=== PATIENT | female | born 1980 | race African-American/Black ===

== ENCOUNTER 2017-01-19 01:42 | Emergency (ER) | payer MEDICAID ==
[2017-01-19 01:52] VITALS: BP 130/74
--- NOTE | 2017-01-19 03:22 | ER Document Report ---
ED GI/ - General Chief Complaint: Abdominal Pain Stated Complaint: PAIN FROM INCISION SITE Time Seen by Provider: 01/19/17 03:15 Mode of Arrival: Ambulatory Information source: Patient Notes: 36-year-old female presents to ED for pelvic pain. She states she had a C- section in 2013 and she has some pain since then but the pain she is having now started about 2 weeks ago and comes and goes at times this is very much a cramp or spasm other times is just annoying pain. She states she lives alone with her children but she has a significant other. She has not seen her MD in the year. Smokes half pack a day denies any alcohol or drugs. She had a tubal ligation and the uterine ablation. TRAVEL OUTSIDE OF THE [place] IN LAST 30 DAYS: No - HPI Patient complains to provider of: Pelvic pain Onset: Other - He has had some tenderness and pain since she had a in 2013 but the pain that she is experiencing now has been for 2 weeks comes and goes. Timing/Duration: Intermittent Quality of pain: Cramping, Sharp Severity at maximum: Moderate Severity in ED: Moderate Pain Level: 4 Location: Pelvis - Left Vaginal bleeding (Compared to normal period): None LMP: She has had a tubal ligation and uterine ablation Associated symptoms: Other - Pelvic pain Exacerbated by: Movement, Walking Relieved by: Denies Similar symptoms previously: Yes Recently seen / treated by doctor: No - Related Data Allergies/Adverse Reactions: No Known Allergies Allergy (Verified 01/31/16 11:48) Past Medical History - General Information source: Patient - Social History Smoking Status: Current Every Day Smoker Cigarette use (# per day): Yes - Half pack per day Chew tobacco use (# tins/day): No Smoking Education Provided: Yes - less than 2 minutes Frequency of alcohol use: None Drug Abuse: None Lives with: Alone - Alone with children Family History: DM, Hyperlipidemia, Hypertension. denies: Arthritis, CAD, COPD , CVA, Malignancy, Thyroid Disfunction Patient has suicidal ideation: No Patient has homicidal ideation: No - Past Medical History Cardiac Medical History: Reports: None Pulmonary Medical History: Reports: None EENT Medical History: Reports: None Neurological Medical History: Reports: None Endocrine Medical History: Reports: None Renal/ Medical History: Reports: None Malignancy Medical History: Reports: None GI Medical History: Reports: None Musculoskeltal Medical History: Reports None Skin Medical History: Reports None Psychiatric Medical History: Reports: None Traumatic Medical History: Reports: None Infectious Medical History: Reports: None Past Surgical History: Reports: Hx Section, Hx Gynecologic Surgery - Ablation, Hx Umbilical Hernia - Immunizations Hx Diphtheria, Pertussis, Tetanus Vaccination: Yes Review of Systems - Review of Systems Constitutional: No symptoms reported EENT: No symptoms reported Cardiovascular: No symptoms reported Respiratory: No symptoms reported Gastrointestinal: No symptoms reported Genitourinary: No symptoms reported Female Genitourinary: Other - Left pelvic pain Musculoskeletal: No symptoms reported Skin: No symptoms reported Hematologic/Lymphatic: No symptoms reported Neurological/Psychological: No symptoms reported -: Yes All other systems reviewed and negative Physical Exam - Vital signs Vitals: Temp Pulse Resp BP Pulse Ox 97.9 F 69 18 130/74 H 99 01/19/17 01:50 01/19/17 01:50 01/19/17 01:50 01/19/17 01:50 01/19/17 01:50 Interpretation: Normal - General General appearance: Appears well, Alert - HEENT Head: Normocephalic, Atraumatic Eyes: Normal Pupils: PERRL - Respiratory Respiratory status: No respiratory distress Chest status: Nontender Breath sounds: Normal Chest palpation: Normal - Cardiovascular Rhythm: Regular Heart sounds: Normal auscultation Murmur: No - Abdominal Inspection: Normal Distension: No distension Bowel sounds: Normal Tenderness: Tender - left pelvic Organomegaly: No organomegaly - Genitourinary External exam: Normal Speculum exam: Normal Vaginal bleeding: None Bimanuel exam: Normal - Back Back: Normal, Nontender - Extremities General upper extremity: Normal inspection, Nontender, Normal color, Normal ROM , Normal temperature General lower extremity: Normal inspection, Nontender, Normal color, Normal ROM , Normal temperature, Normal weight bearing. No: Milvia's sign - Neurological Neuro grossly intact: Yes Cognition: Normal Orientation: AAOx4 Peng Coma Scale Eye Opening: Spontaneous [place] Coma Scale Verbal: Oriented [place] Coma Scale Motor: Obeys Commands [place] Coma Scale Total: 15 Speech: Normal Motor strength normal: LUE, RUE, LLE, RLE Sensory: Normal - Psychological Associated symptoms: Normal affect, Normal mood - Skin Skin Temperature: Warm Skin Moisture: Dry Skin Color: Normal Course - Re-evaluation Re-evalutation: 01/19/17 07:11 She refused to let me treat her for GC and chlamydia and she left before the results came back. After she had left the chlamydia came back positive. Left message with charge nurse to call patient and call in a prescription for azithromycin 1 g 1 p.o. - Vital Signs Vital signs: Temp Pulse Resp BP Pulse Ox 97.9 F 76 20 130/74 H 99 01/19/17 01:50 01/19/17 06:11 01/19/17 06:11 01/19/17 01:50 01/19/17 01:50 - Laboratory Laboratory results interpreted by me: 01/19/17 01/19/17 04:05 04:05 Urine Nitrite POSITIVE H Ur Leukocyte Esterase TRACE H Chlamydia DNA (PCR) DETECTED H Discharge - Discharge Clinical Impression: UTI (urinary tract infection) Qualifiers: Urinary tract infection type: site unspecified Hematuria presence: without hematuria Qualified Code(s): N39.0 - Urinary tract infection, site not specified Abdominal pain Qualifiers: Abdominal location: lower abdomen, unspecified Qualified Code(s): R10.30 - Lower abdominal pain, unspecified Condition: Stable Disposition: HOME, SELF-CARE Instructions: Family Physicians / Practices Additional Instructions: ABDOMINAL PAIN: There are many causes of abdominal pain. Pain can mean a serious problem requiring surgery (such as appendicitis). It can also be an innocent problem that goes away on its own (such as a viral infection). Often, time must pass to determine the cause of pain. The physician does not feel that hospitalization is necessary, at present. Things may change within the next 24 hours. Call the doctor or come back for re- examination if any problems occur, such as: (1) Pain that becomes more severe, steady, or becomes concentrated in one specific area. Also, pain that is more severe with movement or coughing. (2) Vomiting that persists or becomes more frequent. (3) Blood in the vomitus, urine, or bowel movements. Blood in the stool may have a tarry or black appearance. (4) Shaking chills or fever greater than 100 degrees F. (5) The abdomen becomes more distended or swollen. (6) Bowel movements cease. (7) Failure to improve as expected. URINARY TRACT INFECTION: Your evaluation indicates that you have a urinary tract infection. This is due to germs growing in the bladder. This is a common problem. This infection usually responds quickly to antibiotics. Your antibiotic should be taken exactly as prescribed. Drink plenty of fluids -- three to four quarts a day. Occasionally, a bladder anesthetic will be prescribed to help stop the feeling of urgency until the antibiotic has a chance to clear the infection. This may cause your urine to be dark orange. Certain urine infections require a culture. If the doctor obtained a culture, the results will be back in two days. You should call to see if a change in treatment is needed. A repeat urinalysis after you finish treatment is often recommended. The physician will let you know if further testing is required. Call the doctor if you develop fever, chills, flank pain, inability to urinate, or blood in the urine. ANTIBIOTIC THERAPY: You have been given an antibiotic prescription. It's important that you take all the medication, unless instructed otherwise by your physician. Failure to complete the entire course can result in relapse of your condition. Common side effects of antibiotics include nausea, intestinal cramping, or diarrhea. Women may develop vaginal yeast infections, and babies can get yeast (thrush) in the mouth following the use of antibiotics. Contact your physician if you develop significant side effects from this medication. Allergy to this antibiotic can result in hives, wheezing, faintness, or itching. If symptoms of allergy occur, stop the medication and call the doctor. NITROFURANTOIN (MACRODANTIN, MACROBID): You have received a prescription for nitrofurantoin (Macrodantin). This antibiotic is used for urinary tract infections. Women who are or nursing should notify the physician before taking this medicine. If you have ever had a problem caused by this medication in the past, be sure the physician is aware of it. Common side effects of this medicine include nausea, vomiting, or decreased appetite. Notify your physician if these side effects become severe. Immediately stop this medicine and call the physician if you develop cough , shortness of breath, chest pain, weakness, jaundice (yellow color of the skin and whites of the eyes), or a skin rash. USE OF HTOR-HKM-PTUHJEA IBUPROFEN: Ibuprofen (Advil, Nuprin, Medipren, Motrin IB) is a medication for fever and pain control. In addition, it has anti- inflammatory effects which may be beneficial, especially in the treatment of injuries. It's best to take ibuprofen with food. Persons with ulcer disease or allergy to aspirin should notify their physician of this before taking ibuprofen. Ibuprofen can be given every four to six hours, for a total of four doses daily. Age Pain or fever dose Antiinflammatory dose 6-8 yr 200 mg (1 tab) 200 mg (1 tab) 9-11 yr 200 mg (1 tab) 200-400 mg (1-2 tab) 11-14 yr 200-400 mg (1-2 tab) 400 mg (2 tab) 15-adult 400 mg (2 tab) 600 mg (3 tab) Acetaminophen Acetaminophen may be taken for pain relief or fever control. It's much safer than aspirin, offering a wider range of "safe" dosages. It is safe during . Some brand names are Tylenol, Panadol, Datril, Anacin 3, Tempra, and Liquiprin. Acetaminophen can be repeated every four hours. The following are maximum recommended dosages: WEIGHT Dose Drops Elixir Chewable( 80mg) (LBS.) drprs=droppers tsp=teaspoon 6 40 mg .4 ml (1/2) 6-11 80 mg .8 ml (full) 1/2 tsp 1 tab 12-16 120 mg 1 1/2 drprs 3/4 tsp 1 1/2 tabs 17-23 160 mg 2 drprs 1 tsp 2 tabs 24-30 240 mg 3 drprs 1 1/2 tsp 3 tabs 30-35 320 mg 2 tsp 4 tabs 36-41 360 mg 2 1/4 tsp 4 1 /2 tabs 42-47 400 mg 2 1/2 tsp 5 tabs 48-53 480 mg 3 tsp 6 tabs 54-59 520 mg 3 1/4 tsp 6 1 /2 tabs 60-64 560 mg 3 1/2 tsp 7 tabs 65-70 600 mg 3 3/4 tsp 7 1 /2 tabs 71-76 640 mg 4 tsp 8 tabs 77-82 720 mg 4 1/2 tsp 9 tabs 83-88 800 mg 5 tsp 10 tabs >89 pounds or adults 650 mg to 900 mg Acetaminophen can be repeated every four hours. Maximum daily dose not to exceed 4000 mg. These maximum recommended dosages are slightly higher than the dosages written on the product container, but these dosages are very safe and well below the toxic dosage for acetaminophen. FOLLOW-UP CARE: If you have been referred to a physician for follow-up care, call the physician s office for an appointment as you were instructed or within the next two days. If you experience worsening or a significant change in your symptoms, notify the physician immediately or return to the Emergency Department at any time for re-evaluation. Prescriptions: Nitrofurantoin/Nitrofuran Mac [Macrobid 100 mg Capsule] 1 tab PO BID #20 capsule Forms: Smoking Cessation Education, Elevated Blood Pressure
[2017-01-19 04:59] LABS: APPEARANCE,URINE SLIGHTLY-CLOUDY; BILIRUBIN,URINE NEGATIVE (NEGATIVE); GLUCOSE, URINE NEGATIVE (NEGATIVE); KETONES,URINE NEGATIVE (NEGATIVE); LEUKOCYTE ESTERASE,URINE TRACE (NEGATIVE); NITRITE,URINE POSITIVE (NEGATIVE); PROTEIN,URINE NEGATIVE (NEGATIVE); URINE SPECIFIC GRAVITY 1.018; UROBILINOGEN,URINE NEGATIVE mg/dL (<2.0)
[2017-01-19 06:25] LABS: CHLAM PCR DETECTED (NOT DETECT)
== END 2017-01-19 06:11 | disposition home or self-care (01) ==
LOC: ER 01:42
DX: N39.0 Urinary tract infection, site not specified (principal); A74.9 Chlamydial infection, unspecified; R10.2 Pelvic and perineal pain; F17.210 Nicotine dependence, cigarettes, uncomplicated; Z71.6 Tobacco abuse counseling; Z98.890 Other specified postprocedural states; Z98.51 Tubal ligation status
CPT/HCPCS: 81001; 81025; 87086; 87088; 87186; 87210; 87491; 87591; 99284

== ENCOUNTER 2017-03-03 16:58 | Emergency (ER) | payer MEDICAID ==
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
[2017-03-03] MEDS ORDERED: HYDROCODONE/ACETAMINOPHEN 5-325 MG TABLET PO ONE (19:04)
[2017-03-03] MEDS ORDERED: CEPHALEXIN 500 MG CAPSULE PO ONE (19:04)
[2017-03-03] MEDS ORDERED: DIPH/PERTUSS(ACELL)/TETANUS VAC/PF 0.5 ML SYR (>=10YO) IM ONE (19:04)
--- NOTE | 2017-03-03 19:28 | RADIOLOGY REPORT (SQ) ---
EXAM DESCRIPTION: CT FACIAL AREA WITHOUT COMPLETED DATE/TIME: 03/03/2017 7:11 pm REASON FOR STUDY: facial trauma COMPARISON: None. TECHNIQUE: Noncontrasted images through the facial bones and orbits windowed for bone and soft tissu e. Additional coronal and sagittal reconstructed images reviewed. All images stored on PACS. All CT scanners at this facility use dose modulation, iterative reconstruction, and/or weight based d osing when appropriate to reduce radiation dose to as low as reasonably achievable (ALARA). [facility]: Dose Right [facility]: CareDose [facility]: Dose Right [facility]: Teradose 4D [facility]: [employer] RADIATION DOSE: Up-to-date CT equipment and radiation dose reduction techniques were employed. CTDIv ol: 30.4 mGy. DLP: 547 mGy-cm. mGy. LIMITATIONS: None. FINDINGS: FACIAL BONES: There is a fracture involving the medial wall of the left orbit. No other e vidence for fracture is seen. ORBITS: There is herniation of retro-orbital contents into the left ethmoid sinuses and there is air in the retro-orbital soft tissues on the left. PARANASAL SINUSES: There is increased density in the left ethmoid sinuses adjacent to the medial wall of the left orbit related to posttraumatic changes. No nasal polyps. Maxillary sinus outlets are pa tent. SOFT TISSUES: There is periorbital soft tissue swelling on the left. There is increased density in t he periorbital soft tissue swelling on the left presumably representing a hematoma or other posttraum atic changes. INFERIOR BRAIN: Limited view. No acute findings. OTHER: No other significant finding. IMPRESSION: There is a fracture involving the medial wall of the left orbit with apparent herniation of retro-orbital contents into the left ethmoid sinuses and there is air in the retro-orbital soft t issues on the left. There is superficial soft tissue swelling in the periorbital region on the left with associated increased density presumably representing a hematoma or other posttraumatic changes. Other findings as noted above TECHNICAL DOCUMENTATION: JOB ID: [id number] Quality ID # [id number]: Final reports with documentation of one or more dose reduction techniques (e.g., Au tomated exposure control, adjustment of the mA and/or kV according to patient size, use of iterative reconstruction technique) 2010 [employer]- All Rights Reserved
[2017-03-03] MEDS ORDERED: AMOXICILLIN TR/POT CLAVULANATE 500-125 MG TAB PO ONE (19:44)
[2017-03-03 20:04] VITALS: BP 124/72
== END 2017-03-03 20:15 | disposition home or self-care (01) ==
LOC: ER 16:58
DX: S02.82XA Fracture of other specified skull and facial bones, left side, initial encounter for closed fracture (principal); S00.212A Abrasion of left eyelid and periocular area, initial encounter; S00.12XA Contusion of left eyelid and periocular area, initial encounter; F17.200 Nicotine dependence, unspecified, uncomplicated; Y08.89XA Assault by other specified means, initial encounter
CPT/HCPCS: 99284; 90471; 70486; 90715; J3490

== ENCOUNTER 2017-03-06 02:37 | Emergency (ER) | payer MEDICAID ==
[2017-03-06 02:51] VITALS: BP 140/89
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
== END 2017-03-06 03:31 | disposition home or self-care (01) ==
LOC: ER 02:37
DX: R51 Headache (principal); F17.200 Nicotine dependence, unspecified, uncomplicated; Z87.81 Personal history of (healed) traumatic fracture
CPT/HCPCS: 99282

== ENCOUNTER 2017-03-09 14:04 | Emergency (ER) | payer MEDICAID ==
[2017-03-09 14:11] VITALS: BP 133/83
--- NOTE | 2017-03-09 15:02 | ER Document Report ---
HPI - HPI Patient complains to provider of: eye pain Onset: Last week Onset/Duration: Waxing and waning Quality of pain: Sharp, Throbbing Severity: Moderate Pain Level: 4 Associated Symptoms: Other - Left facial pain with periorbital ecchymosis to the left eye. Patient was seen last week for an orbital fracture Exacerbated by: Denies Relieved by: Denies Similar symptoms previously: Yes Recently seen / treated by doctor: Yes - ROS ROS below otherwise negative: Yes - CONSTITUTIONAL Constitutional: DENIES: Fever, Chills - EENT EENT: REPORTS: Eye problems - Fractured orbital bone. DENIES: Sore Throat, Ear Pain, Nasal Drainage-Clear, Nasal Drainage-Purulent, Congestion - NEURO Neurology: REPORTS: Headache. DENIES: Weakness, Vision blurred, Dizzinesss / Vertigo - CARDIOVASCULAR Cardiovascular: DENIES: Chest pain - RESPIRATORY Respiratory: DENIES: Trouble Breathing, Coughing - GASTROINTESTINAL Gastrointestinal: DENIES: Abdominal Pain, Nausea, Patient vomiting, Diarrhea, Constipation, Black / Bloody Stools - URINARY Urinary: DENIES: Dysuria, Urgency, Frequency - REPRODUCTIVE Reproductive: DENIES: :, Postmenopausal, Abnormal bleeding / discharge - MUSCULOSKELETAL Musculoskeletal: DENIES: Extremity pain, Back Pain, Neck Pain, Swelling - DERM Skin Color: Ecchymosis - Periorbital left eye Skin Problems: None Past Medical History - General Information source: Patient - Social History Smoking Status: Current Every Day Smoker Cigarette use (# per day): Yes - Pack per day Chew tobacco use (# tins/day): No Smoking Education Provided: Yes - 2 minutes Frequency of alcohol use: None Drug Abuse: None Family History: DM, Hyperlipidemia, Hypertension Patient has suicidal ideation: No Patient has homicidal ideation: No - Past Medical History Cardiac Medical History: Reports: None Pulmonary Medical History: Reports: None Neurological Medical History: Reports: None Endocrine Medical History: Reports: None Renal/ Medical History: Reports: None Malignancy Medical History: Reports: None GI Medical History: Reports: None Musculoskeltal Medical History: Reports Other - orbital pain and fracture Skin Medical History: Reports None Psychiatric Medical History: Reports: None Traumatic Medical History: Reports: Hx Fractures - orbital pain Infectious Medical History: Reports: None Past Surgical History: Reports: Hx Section, Hx Gynecologic Surgery - Ablation, Hx Tubal Ligation, Hx Umbilical Hernia - Immunizations Immunizations up to date: Yes Hx Diphtheria, Pertussis, Tetanus Vaccination: Yes Vertical Provider Document - CONSTITUTIONAL Agree With Documented VS: Yes Exam Limitations: No Limitations - INFECTION CONTROL TRAVEL OUTSIDE OF THE [place] IN LAST 30 DAYS: No - HEENT HEENT: Normal ENT Exam. negative: Atraumatic - Periorbital ecchymosis with a fracture last week to the orbital bone, Normocephalic - NECK Neck: Normal Inspection - RESPIRATORY Respiratory: Breath Sounds Normal, No Respiratory Distress O2 Sat by Pulse Oximetry: 98 - CARDIOVASCULAR Cardiovascular: Regular Rate, Regular Rhythm - MUSCULOSKELETAL/EXTREMETIES Musculoskeletal/Extremeties: MAEW, FROM, Non-Tender, Eccymosis - Periorbital ecchymosis due to a orbital fracture - NEURO Level of Consciousness: Awake, Alert, Appropriate Motor/Sensory: No Motor Deficit, No Sensory Deficit Course - Re-evaluation Re-evalutation: 03/09/17 15:36 Patient states she was out of her Percocet and she is still having severe pain in her face. Patient states she went to the eye doctor who is post to do surgery next week but they did not give her any pain medicine. She was treated last week with hydrocodone which she states did not help her pain at all and then they gave her Percocet. I gave her a prescription for 6 Percocet and told her that would be the last narcotic she would get from the emergency room for this orbital pain she would need to follow-up with cloth feeder for any further pain. - Vital Signs Vital signs: Temp Pulse Resp BP Pulse Ox 99.2 F 87 16 133/83 H 98 03/09/17 14:09 03/09/17 14:09 03/09/17 14:09 03/09/17 14:09 03/09/17 14:09 Discharge - Discharge Clinical Impression: Facial pain, acute Condition: Stable Disposition: HOME, SELF-CARE Instructions: Family Physicians / Practices Additional Instructions: You were seen today for continued pain in your eyes and face after you had a fracture facial bone last week. States she was given hydrocodone that did not help you with your pain and then you were given a prescription for oxycodone. She states she went to the eye doctor and he did not give you any further pain medicine. You also states to have a appointment to have eye surgery next week. I will give you a very small prescription for 6 Percocet these need to last you until you can follow-up with your eye doctor as you will not be getting any more medication for the emergency room for your pain. Ice Packs Apply ice packs frequently against the painful area. Many different schedules are recommended, such as "20 minutes on, 20 minutes off" or "one hour ice, two hours rest." If you need to work, you may need to go longer between ice treatments. You should plan to have the area ice packed AT LEAST one fourth of the time. The ice should be applied over the wrap, tape, or splint, or over a layer of cloth -- not directly against the skin. Some ice bags have a built-in cloth and can be put directly on the skin. Oral Narcotic Medication You have been given a prescription for pain control. This medication is a narcotic. It's best taken with food, as nausea can result if taken on an empty stomach. Don't operate machinery or drive within six hours of taking this medication. Do not combine this medicine with alcohol, or with any medication which can cause sedation (such as cold tablets or sleeping pills) unless you get permission from the physician. Narcotics tend to cause constipation. If possible, drink plenty of fluids and eat a diet high in fiber and fruits. FOLLOW-UP CARE: If you have been referred to a physician for follow-up care, call the physician s office for an appointment as you were instructed or within the next two days. If you experience worsening or a significant change in your symptoms, notify the physician immediately or return to the Emergency Department at any time for re-evaluation. Prescriptions: Oxycodone HCl/Acetaminophen [Percocet 5-325 mg Tablet] 1 tab PO Q8HP PRN #6 tablet PRN Reason: Forms: Elevated Blood Pressure
== END 2017-03-09 15:38 | disposition home or self-care (01) ==
LOC: ER 14:04
DX: R51 Headache (principal); H57.12 Ocular pain, left eye; S00.12XD Contusion of left eyelid and periocular area, subsequent encounter; X58.XXXD Exposure to other specified factors, subsequent encounter; F17.210 Nicotine dependence, cigarettes, uncomplicated
CPT/HCPCS: 99283

== ENCOUNTER → 2017-07-18 | Outpatient (CLI) | payer MEDICAID ==
--- NOTE | 2017-07-18 10:08 | RADIOLOGY REPORT (SQ) ---
EXAM DESCRIPTION: ANKLE BILATERAL 3 VIEWS MIN COMPLETED DATE/TIME: 07/18/2017 9:53 am REASON FOR STUDY: ACUTE BILATERAL ANKLE PAIN COMPARISON: None. NUMBER OF VIEWS: Three views. TECHNIQUE: AP, lateral, and oblique without weight bearing radiographic images acquired of the right and left ankle. LIMITATIONS: None. FINDINGS: MINERALIZATION: Normal. BONES: No acute fracture or dislocation. No worrisome bone lesions. No significant osteophytes. JOINTS: No effusions. SOFT TISSUES: No soft tissue swelling. No foreign body. OTHER: No other significant finding. IMPRESSION: NEGATIVE STUDY OF THE RIGHT AND LEFT ANKLES. NO EXPLANATION FOR PAIN. TECHNICAL DOCUMENTATION: JOB ID: [id number] [employer]- All Rights Reserved
== END ==
LOC: RAD 09:29
PROVIDERS: ATTEND Nurse Practitioner Family
DX: M25.571 Pain in right ankle and joints of right foot (principal)

== ENCOUNTER 2018-08-20 02:39 | Emergency (ER) | payer MEDICAID ==
[2018-08-20 03:46] LABS: ABSOLUTE EOSINOPHILS # (AUTO) 0.1 10^3/uL (0.0-0.6); ABSOLUTE LYMPHOCYTES (AUTO) 2.7 10^3/uL (0.5-4.7); ABSOLUTE MONOCYTES (AUTO) 0.4 10^3/uL (0.1-1.4); ABSOLUTE NEUT (AUTO) 2.6 10^3/uL (1.7-8.2); BASOPHILS % (AUTO) 0.4 % (0-2); HEMATOCRIT 34.9 % (36.0-47.0); HEMOGLOBIN 11.9 g/dL (12.0-15.5); LYMPHOCYTES % (AUTO) 46.6 % (13-45); MEAN CORPUSCULAR HEMOGLOBIN 31.1 pg (27.0-33.4); MEAN CORPUSCULAR HGB CONC 34.1 g/dL (32.0-36.0); MEAN CORPUSCULAR VOLUME 91 fl (80-97); MONOCYTES % (AUTO) 7.1 % (3-13); PLATELET COUNT 222 10^3/uL (150-450); RED BLOOD COUNT 3.82 10^6/uL (3.72-5.28); RED CELL DISTRIBUTION WIDTH 13.2 % (11.5-14.0); SEGMENTED NEUTROPHILS % (AUTO) 44.9 % (42-78); TOTAL CELLS COUNTED % (AUTO) 100 %; WHITE BLOOD COUNT 5.7 10^3/uL (4.0-10.5)
[2018-08-20 04:06] LABS: ALANINE AMINOTRANSFERASE 38 U/L (9-52); ALBUMIN 3.9 g/dL (3.5-5.0); ALKALINE PHOSPHATASE 35 U/L (38-126); ANION GAP 6 (5-19); ASPARTATE AMINO TRANSFERASE 26 U/L (14-36); BILIRUBIN,DIRECT 0.2 mg/dL (0.0-0.4); BILIRUBIN,TOTAL 0.2 mg/dL (0.2-1.3); BLOOD UREA NITROGEN 11 mg/dL (7-20); CALCIUM 9.2 mg/dL (8.4-10.2); CARBON DIOXIDE 29 mmol/L (22-30); CHLORIDE 106 mmol/L (98-107); CREATINE KINASE 137 U/L (30-135); GLUCOSE 95 mg/dL (75-110); POTASSIUM 4.1 mmol/L (3.6-5.0); SODIUM 141.1 mmol/L (137-145); TOTAL PROTEIN 6.1 g/dL (6.3-8.2)
--- NOTE | 2018-08-20 04:09 | RADIOLOGY REPORT (SQ) ---
EXAM DESCRIPTION: XR CHEST 1 VIEW COMPLETED DATE/TME: 08/20/2018 03:38 CLINICAL HISTORY: 37 years, Female, sob Comparison: January 31, 2016 FINDINGS: No focal lung consolidation. No pleural effusion. No pneumothorax. Cardiac and mediastinal silhouette is unremarkable. No acute osseous abnormality. Soft tissues are unremarkable. IMPRESSION: No acute findings. No focal lung consolidation.
[2018-08-20 04:19] LABS: TROPONIN I < 0.012 ng/mL
--- NOTE | 2018-08-20 04:56 | ER Document Report ---
ED General - General Chief Complaint: Chest Pain Stated Complaint: CHEST PAIN Time Seen by Provider: 08/20/18 03:19 Primary Care Provider: KHADRA CORRAL MD [Primary Care Provider] - Follow up in 3-5 days TRAVEL OUTSIDE OF THE [place] IN LAST 30 DAYS: No - HPI Patient complains to provider of: Right-sided chest pain Notes: Patient coming in for evaluation of a right-sided chest pain. Patient states that ongoing since Friday. Patient states she donated plasma just prior to chest pain starting. Patient denies any fever chills nausea vomiting diarrhea denies any trauma. Patient states chest hurts when she palpates the area moves. Patient otherwise resting comfortably upon my evaluation. - Related Data Allergies/Adverse Reactions: No Known Allergies Allergy (Verified 01/31/16 11:48) Past Medical History - Social History Smoking Status: Unknown if Ever Smoked Family History: DM, Hyperlipidemia, Hypertension Renal/ Medical History: Denies: Hx Peritoneal Dialysis Traumatic Medical History: Reports: Hx Fractures - orbital pain Past Surgical History: Reports: Hx Section, Hx Gynecologic Surgery - Ablation, Hx Tubal Ligation, Hx Umbilical Hernia - Immunizations Immunizations up to date: Yes Hx Diphtheria, Pertussis, Tetanus Vaccination: Yes Review of Systems - Review of Systems Constitutional: No symptoms reported EENT: No symptoms reported Cardiovascular: Chest pain Respiratory: No symptoms reported Gastrointestinal: No symptoms reported Genitourinary: No symptoms reported Female Genitourinary: No symptoms reported Musculoskeletal: No symptoms reported Skin: No symptoms reported Hematologic/Lymphatic: No symptoms reported Neurological/Psychological: No symptoms reported -: Yes All other systems reviewed and negative Physical Exam - Vital signs Vitals: Temp Pulse Resp BP Pulse Ox 98.8 F 63 18 129/73 H 99 08/20/18 03:00 08/20/18 03:00 08/20/18 03:00 08/20/18 03:00 08/20/18 03:00 Interpretation: Normal - General General appearance: Appears well, Alert - HEENT Head: Normocephalic, Atraumatic Eyes: Normal Pupils: PERRL - Respiratory Respiratory status: No respiratory distress Chest status: Tender Breath sounds: Normal Chest palpation: Normal - Cardiovascular Rhythm: Regular Heart sounds: Normal auscultation Murmur: No - Abdominal Inspection: Normal Distension: No distension Bowel sounds: Normal Tenderness: Nontender Organomegaly: No organomegaly - Back Back: Normal, Nontender - Extremities General upper extremity: Normal inspection, Nontender, Normal color, Normal ROM, Normal temperature General lower extremity: Normal inspection, Nontender, Normal color, Normal ROM, Normal temperature, Normal weight bearing. No: Milvia's sign - Neurological Neuro grossly intact: Yes Cognition: Normal Orientation: AAOx4 Kinsley Coma Scale Eye Opening: Spontaneous Kinsley Coma Scale Verbal: Oriented Kinsley Coma Scale Motor: Obeys Commands Kinsley Coma Scale Total: 15 Speech: Normal Motor strength normal: LUE, RUE, LLE, RLE Sensory: Normal - Psychological Associated symptoms: Normal affect, Normal mood - Skin Skin Temperature: Warm Skin Moisture: Dry Skin Color: Normal Course - Re-evaluation Re-evalutation: 08/20/18 05:36 The patient has atypical chest pain as the patient's chest pain is not suggestive of pulmonary embolus, cardiac ischemia, aortic dissection, or other serious etiology. Given the extremely low risk of these diagnoses further testing and evaluation for these possibilities does not appear to be indicated at this time. The patient has been instructed to return if the symptoms worsen or change in any way. - Vital Signs Vital signs: Temp Pulse Resp BP Pulse Ox 98.2 F 63 21 H 134/73 H 99 08/20/18 05:01 08/20/18 03:00 08/20/18 05:01 08/20/18 05:01 08/20/18 05:01 - Laboratory Result Diagrams: 08/20/18 03:38 08/20/18 03:38 Laboratory results interpreted by me: 08/20/18 08/20/18 03:38 03:38 Hgb 11.9 L Hct 34.9 L Lymphocytes % 46.6 H Alkaline Phosphatase 35 L Creatine Kinase 137 H Total Protein 6.1 L Discharge - Discharge Clinical Impression: Chest wall pain Condition: Good Disposition: HOME, SELF-CARE Instructions: Anti-Inflammatory Medication ([facility]), Chest Wall Pain ([facility]), Chest Pain of Unclear Cause ([facility]) Additional Instructions: Your evaluation is consistent with chest wall pain would recommend that you follow-up with your primary care physician. I recommend taking Tylenol and Motrin for your pain control. Please make sure that you are drinking plenty of fluids containing electrolytes such as Gatorade Pedialyte or Powerade especially if you continue to plan on donating plasma. Return to the ER if your symptoms worsen or change. Prescriptions: Ibuprofen [Motrin 600 mg Tablet] 600 mg PO Q8HP PRN #21 tablet PRN Reason: Referrals: KHADRA CORRAL MD [Primary Care Provider] - Follow up in 3-5 days
[2018-08-20 05:04] VITALS: BP 134/73
--- NOTE | 2018-08-20 22:21 | EKG REPORT ---
SEVERITY:- NORMAL ECG - SINUS RHYTHM : Confirmed by: Katiana Lam 20-Aug-2018 22:20:00
== END 2018-08-20 05:14 | disposition home or self-care (01) ==
LOC: ER 02:39
DX: R07.89 Other chest pain (principal); R07.9 Chest pain, unspecified; Z98.51 Tubal ligation status
CPT/HCPCS: 36415; 71045; 80053; 82550; 82553; 84484; 85025; 93005; 93010; 99285

== ENCOUNTER 2018-08-31 08:24 | Day surgery (SDC) | payer MEDICAID ==
[~2018-08-31 08:24] MED LIST: PROPOFOL INJ 200 MG/20 ML VIAL IV ONE
[2018-08-31 09:46] VITALS: BP 115/81
--- NOTE | 2018-08-31 12:26 | Operative Report ---
Operative Report DATE OF SURGERY: 08/31/18 Operative Report: The risks, benefits and alternatives of the procedure including the risk of bleeding, perforation requiring surgery have been explained to the patient in detail and informed consent has been obtained. The patient is taken back to the endoscopy suite and placed in the left, lateral decubital position. Timeout was called. Propofol medication is administered. Rectal examination is done which did not reveal any masses, tears or fissures. An Olympus videoscope was introduced into the patient's rectum. The scope was then is carefully done advanced all the way to the cecum. Cecum was identified by the usual anatomical landmarks including the ileocecal valve as well as the appendiceal office. Photodocumentation is obtained. The scope was then sequentially pulled back via the various segments of the colon including the ascending colon, hepatic fle xure, transverse colon, splenic flexure, descending colon and finally into the rectosigmoid portions of the colon. Retroflexion maneuver was performed. PREOPERATIVE DIAGNOSIS: Change in bowel habits. Dyspepsia POSTOPERATIVE DIAGNOSIS: Ascending colon polyp was removed via biopsy forceps. Internal hemorrhoids. Gastritis status post biopsy rule out Helicobacter pylori OPERATION: Colonoscopy with biopsy. EGD with biopsy SURGEON: ALEJANDRA ALMONTE ANESTHESIA: LMAC TISSUE REMOVED OR ALTERED: As noted above. COMPLICATIONS: None. ESTIMATED BLOOD LOSS: None. INTRAOPERATIVE FINDINGS: As noted above. PROCEDURE: Patient tolerated the procedure well. No immediate postprocedure complications are noted. Patient discharged in good condition. Discharge date 08/31/2018. Discharge diet: Regular. Discharge activity: Regular. 2-3-week follow-up to discuss findings. 3-5-year surveillance colonoscopy. Patient is instructed to call the office or proceed to the emergency room should there be any further problems or questions. I will wait on the pathology.
== END 2018-08-31 09:55 | disposition home or self-care (01) ==
LOC: END 08:24
PROVIDERS: ATTEND Internal Medicine Gastroenterology
DX: D12.2 Benign neoplasm of ascending colon (principal); K64.8 Other hemorrhoids; K29.50 Unspecified chronic gastritis without bleeding; Z79.899 Other long term (current) drug therapy; F17.210 Nicotine dependence, cigarettes, uncomplicated; G89.4 Chronic pain syndrome; G43.909 Migraine, unspecified, not intractable, without status migrainosus
CPT/HCPCS: 43239; 45380; 813; 88305; 88342; J2704

== ENCOUNTER 2019-01-29 15:48 | Emergency (ER) | payer MEDICAID ==
[2019-01-29] MEDS ORDERED: KETOROLAC TROMETHAMINE INJ/PF 30 MG/1 ML SDV IM ONE (16:19)
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
[2019-01-29] MEDS ORDERED: OXYCODONE HCL IR 5 MG TABLET PO ONE (20:15)
--- NOTE | 2019-01-29 20:19 | ER Document Report ---
ED General - General Chief Complaint: Leg Pain Stated Complaint: FACIAL PAIN Time Seen by Provider: 01/29/19 16:18 Primary Care Provider: KHADRA CORRAL MD [ACTIVE STAFF] - Follow up as needed Mode of Arrival: Ambulatory TRAVEL OUTSIDE OF THE [place] IN LAST 30 DAYS: No - HPI Notes: Patient is a 38-year-old female that presents to the emergency department for chief complaint of left eye pain. Patient states in 2017 she had a left orbital fracture and surgery. Since then she has had intermittent pain around her left orbit. She states usually it is intermittent and does not last for long. She states of the last few weeks the pain has become more frequent and constant. She describes a sharp pain over her left infraorbital and supraorbital rim that causes a headache behind her left eye. She denies any vision changes or pain with ocular movement. She denies any pain in her eyeball itself. She states she feels like there is something shifting with the hardware. She denies recent visits with her surgeon, her surgery was done at [facility]. Patient denies any recent injury to the eye but states she does roughhouse with her son on occasion and has been bumped in the area which is painful when it occurs. Past Medical History: Reflex sympathetic dystrophy Past Surgical History: Left orbital fracture repair Social History: Reviewed in chart Family History: Reviewed and noncontributory for presenting illness Allergies: Reviewed, see documented allergy list. REVIEW OF SYSTEMS: CONSTITUTIONAL : No fever No chills No diaphoresis No recent illness EENT: No vision changes Left periorbital pain No congestion No sore throat CARDIOVASCULAR: No chest pain No palpitations RESPIRATORY: No shortness of breath No cough No difficulty breathing GASTROINTESTINAL: No abdominal pain No nausea No vomiting No diarrhea GENITOURINARY: No dysuria No hematuria No difficulty urinating MUSCULOSKELETAL: No back pain No leg pain No arm pain SKIN: No rashes No lesions LYMPHATIC: No swollen, enlarged glands. NEUROLOGICAL: No lightheadedness No headache No weakness No paresthesias PSYCHIATRIC: No anxiety No depression PHYSICAL EXAMINATION: Vital signs reviewed, nursing noted reviewed. GENERAL: Well-appearing, well-nourished and in no acute distress. HEAD: Atraumatic, normocephalic. EYES: Tenderness to palpation of lateral inferior and superior orbital rim without fluctuance or obvious deformity, no crepitus, no pain with ocular movement, PERRLA, eyes appear normal, extraocular movements intact, sclera anicteric, conjunctiva are normal. ENT: nares patent, oropharynx clear without exudates. Moist mucous membranes. NECK: Normal range of motion, supple without lymphadenopathy LUNGS: Breath sounds clear to auscultation bilaterally and equal. No wheezes rales or rhonchi. HEART: Regular rate and rhythm without murmurs ABDOMEN: Soft, nontender, normoactive bowel sounds. No rebound, guarding, or rigidity. No masses appreciated. EXTREMITIES: Nontender, good range of motion, no pitting or edema. NEUROLOGICAL: No focal neurological deficits. Moves all extremities spontaneously Motor and sensory grossly intact on exam. PSYCH: Normal mood, normal affect. SKIN: Warm, Dry, normal turgor, no rashes or lesions noted on exposed skin - Related Data Allergies/Adverse Reactions: No Known Allergies Allergy (Verified 01/29/19 15:50) Past Medical History - General Information source: Patient - Social History Smoking Status: Current Every Day Smoker Chew tobacco use (# tins/day): No Frequency of alcohol use: None Drug Abuse: None Family History: DM, Hyperlipidemia, Hypertension Patient has suicidal ideation: No Patient has homicidal ideation: No - Past Medical History Cardiac Medical History: Denies: Hx Coronary Artery Disease, Hx Heart Attack, Hx Hypertension Pulmonary Medical History: Denies: Hx Asthma, Hx Bronchitis, Hx COPD, Hx Pneumonia Neurological Medical History: Denies: Hx Cerebrovascular Accident, Hx Seizures Renal/ Medical History: Denies: Hx Peritoneal Dialysis Musculoskeletal Medical History: Denies Hx Arthritis Traumatic Medical History: Reports: Hx Fractures - orbital pain Past Surgical History: Reports: Hx Section, Hx Gynecologic Surgery - Ablation, Hx Orthopedic Surgery - facial, Hx Tubal Ligation, Hx Umbilical Hernia - Immunizations Immunizations up to date: Yes Hx Diphtheria, Pertussis, Tetanus Vaccination: No Physical Exam - Vital signs Vitals: Temp Pulse Resp BP Pulse Ox 98 F 86 18 136/79 H 98 01/29/19 15:52 01/29/19 15:52 01/29/19 15:52 01/29/19 15:52 01/29/19 15:52 Course - Re-evaluation Re-evalutation: 01/29/19 20:19 Vitals reviewed. Nursing notes reviewed. Patient received Toradol in triage and reports no change in her symptoms. She was given the oxycodone for further pain control. Patient is not sure if she has hardware in this area and does have focal tenderness to her orbital rim. CT scan will be obtained to evaluate for shifting of hardware or possible new fracture. 01/29/19 21:[address] scan shows chronic changes from her injury and surgery. They did note some medial rectus enlargement however patient is not having any medial line tenderness. Her tenderness is all bony and laterally on the orbital rim. I do not think that this is an acute finding. I did recommend that she contact her surgeon at [facility] to discuss her ongoing pain. At this point she is hemodynamically stable for discharge. Orbit CT 01/29/19 20:12 IMPRESSION: 1. Deformity of the medial wall of the left orbit suggesting old blowout fracture less likely congenital deformity. Associated thickening of the left medial rectus muscle. Associated tiny surgical sutures. Suggest clinical correlation. There is no obvious acute finding unless the rectus muscle thickening is acute. - Vital Signs Vital signs: Temp Pulse Resp BP Pulse Ox 98 F 86 26 H 134/79 H 99 01/29/19 15:52 01/29/19 15:52 01/29/19 20:01 01/29/19 20:01 01/29/19 20:01 Discharge - Discharge Clinical Impression: Orbital pain Qualifiers: Laterality: left Qualified Code(s): H57.12 - Ocular pain, left eye Condition: Stable Disposition: HOME, SELF-CARE Additional Instructions: Please return to the emergency department if you have any worsening, or concern of your symptoms. Please return to the emergency department if you develop chest pain, difficulty breathing, severe abdominal pain, or ongoing vomiting. Please follow-up with your primary care physician in 2-3 days and any other recommended physicians. If prescribed, take all medications as directed. If you have any questions or concerns do not hesitate to return the emergency department for evaluation. Contact your surgeon at [facility] who performed her orbital fracture repair for follow-up of your ongoing pain Referrals: KHADRA CORRAL MD [ACTIVE STAFF] - Follow up as needed
--- NOTE | 2019-01-29 21:19 | RADIOLOGY REPORT (SQ) ---
EXAM DESCRIPTION: CT of the orbits without IV contrast. CLINICAL HISTORY: 38 years Female left eye pain COMPARISON: None TECHNIQUE: Axial images without IV contrast. Sagittal and coronal reconstruction. This exam was performed according to our departmental dose-optimization program, which includes automated exposure control, adjustment of the mA and/or kV according to patient size and/or use of iterative reconstruction technique.. FINDINGS: There is mild thickening of the left medial rectus orbital muscle. Measures 6 mm in transverse diameter versus 3 mm in the contralateral side. There is small high density structures within the muscle which are suspicious for metallic sutures less likely other foreign body. Cannot completely exclude also presence of tiny calcifications. There is medial displacement of the main lamina papyracea/lateral wall of the ethmoid air cells. Invagination of orbital fat towards the midline. Suggestive of previous blowout fracture of the medial orbital wall. There is no acute finding adjacent ethmoid air cells. No suspicious acute bony abnormality. Evaluation of the orbits demonstrates unremarkable symmetrical globes optic nerve and the retro-orbital space. Limited images of the brain are unremarkable. IMPRESSION: 1. Deformity of the medial wall of the left orbit suggesting old blowout fracture less likely congenital deformity. Associated thickening of the left medial rectus muscle. Associated tiny surgical sutures. Suggest clinical correlation. There is no obvious acute finding unless the rectus muscle thickening is acute.
[2019-01-29 21:30] VITALS: BP 135/80
== END 2019-01-29 21:30 | disposition home or self-care (01) ==
LOC: ER 15:48
DX: H57.12 Ocular pain, left eye (principal); F17.200 Nicotine dependence, unspecified, uncomplicated; Z98.51 Tubal ligation status
CPT/HCPCS: 70480; J1885; J3490; 96374; 99283